=== PATIENT | male | born 1970 | race Caucasian/White ===

== ENCOUNTER 2021-04-18 11:44 | Emergency (ER) | payer OTHER ==
[~2021-04-18] VITALS: Ht 185.4 cm; Wt 102.1 kg
--- NOTE | 2021-04-18 16:39 | NUR ---
PT PLACED INTO ROOM FROM LOBBY. ASSUMED CARE OF PT AT THIS TIME.
[2021-04-18 17:51] VITALS: BP 148/97
== END 2021-04-18 18:15 | disposition home or self-care (01) ==
LOC: ED 18:09
DX: M54.6 Pain in thoracic spine (principal); M54.2 Cervicalgia
CPT/HCPCS: 72125; 72128; 99285